=== PATIENT | female | born 2005 ===

== ENCOUNTER 2025-11-02 12:37 | Emergency (ER) | payer SELFPAY ==
[2025-11-02 13:22] VITALS: BP 137/77; PULSE 96; RESP 97; TEMP 36.3; O2SAT 99; BMI 30.1
--- NOTE | 2025-11-02 13:32 | ED_ITS ---
HPI - General Adult General Chief complaint: General Medical Stated complaint: General Medical Time Seen by Provider: 11/02/25 17:06 Source: patient Mode of arrival: ambulatory Limitations: no limitations History of Present Illness ED Provider: John Perez HPI narrative: 20 yold female who has 5 pregancy tests that were positive presents to the ED who wants to confirm . Patient is asymptomatic. patient states no abdominal pain, nausea, vomitting, or vaginal bleeding/discharge. Related Data Allergies Allergy/AdvReac Type Severity Reaction Status Date / Time Penicillins (PCN) Allergy Unknown UNK Verified 11/02/25 13:28 Review of Systems Review of Systems: wants to confirm Yes all other systems are reviewed and are negative PMFSH Social History Social History Advance Directives: No Advance Directives Information Provided: No Do you have a plan to hurt others: No Plan Physical Exam ED Vital Signs: Vital Signs - 24 hr 11/02/25 13:22 Temperature 97.4 F Pulse Rate 96 Respiratory Rate 97 H Blood Pressure 137/77 Pulse Oximetry 99 Oxygen Delivery Method Room Air BMI result Body Mass Index 30.1 Const General: cooperative, healthy appearing, comfortable, no acute distress, well developed, alert, awake and Physically active Orientation/consciousness: patient oriented x3 HENMT Head: Yes normal to inspection, Yes No palpable skull fracture present, Yes normocephalic and Yes atraumatic Eyes General: appearance normal, both eyes and all related structures Neck Neck: Yes normal visual inspection, Yes full ROM, Yes no lymphadenopathy, Yes no meningeal signs, Yes trachea midline, Yes supple, No anterior neck swelling and No tender Chest Chest palpation & inspection: normal inspection of the chest and normal palpation of entire chest wall Resp Effort & Inspection: normal respiratory effort and able to speak in complete sentences Auscultation: clear to auscultation bilaterally Cardio Jugular venous distension: no JVD Heart sounds: S1 normal heart sound present and S2 normal heart sound present GI Inspection: Yes normal to inspection Palpation (GI): Soft to palpation, not firm, nontender, no guarding and not rigid General: Yes no CVA tenderness Back/Spine/Pelvis Back: no CVA tenderness and No back tenderness Skin General skin exam: no rashes or lesions noted and elasticity normal Neuro General: patient oriented x3, gait normal, tone normal, moves all extremities, Normal light touch and pain sensation, no meningeal signs, no focal motor deficits and CN's II-XI intact bilaterally Extrem General: Yes normal to inspection, Yes full ROM and Yes capillary refill normal Psych Appearance: grossly normal, well kempt and not disheveled Course Course Course Narrative: RME: 20-year-old female presents to ED wanted to confirm . Patient took 5 tests at home and they were all positive. Patient denies any abdominal pain, nausea, vomiting, vaginal bleeding or vaginal discharge. Labs ordered Medical Decision Making Medical Decision Making MDM Narrative: 20-year-old female presents to ED for wanted to confirm . Patient is asymptomatic. HCG confirmed . Patient will follow up outpatient OBGYN. Patient states no complaint patient explained worrisome signs informed return to the ED immediately. Differential Diagnosis Differential Diagnoses: The differential diagnosis associated with the presentation includes ( ) Admission/Observation Consideration of admission/observation: Escalation of care including admission/observation considered Lab Data [facility] Lab Attestation statement: I reviewed the patient's lab results. Labs: Lab Results 11/02/25 Range/Units 14:45 Beta HCG, Quant [id number] mIU/mL Discharge Plan Discharge Clinical Impression: Patient Disposition: Home, Self-Care Instructions: (ED) Additional Instructions: recommend follow up with OBGYN. Return to the ED immediately for any abdominal pain, vaginal bleeding, vaginal discharge, flank pain, fever, chills, passing out, nausea, vomitting, or any other concerning symptoms. [facility] [address] [place] [phone] Personal Financial Advisor: Angelo Martin M.D. Specimen Inquiry Name: Eloise Patel Age/Sex: 20/F : 2005 Unit#: [id number] Attend Dr: Giancarlo Modi MD Re11/02/25 Status: PRE ER Location: .ED Disch: SPEC : [id number] ALY: 11/02/25 STATUS: COMP REQ : [id number] RECD: 11/02/[address]: John Perez COMP: 11/02/25 ENTERED: 11/02/25-1332 [facility] [address]: Physician,None ORDERED: HCG Quant Test Result Flag Reference HCG Quant [id number] mIU/mL Weeks post LMP Approximate hCG (Last Menstrual Period) Range (mIU/ml) 3 - 4 weeks 9 - 130 4 - 5 weeks 75 - 2,600 5 - 6 weeks 850 - 20,800 6 - 7 weeks 4000 - 100,200 7 - 12 weeks 11,500 - 289,000 12 - 16 weeks 18,300 - 137,000 16 - 29 weeks (2nd trimester) 1,400 - 53,000 29 - 41 weeks (3rd trimester) 940 - 60,000 The Jaramillo B-hCG assay is used for the early detection of ; it cannot be used to diagnose any condition unrelated to . If a B-hCG level is not supported by the clinical evidence, results should be confirmed by an alternative method (qualitative urine hCG, for example). Please see list of local OBGYN providers below: [facility] [address] [phone] [facility] [address] [place] [address] [phone] [facility] [place] [phone] [facility] [place] [phone] Stand Alone Forms: Work/School Release Interventions: ED Discharge Assessment Last Done: 11/02/25 17:21 Discharge Date/Time: 11/02/25 17:27 Print Language: Upper Sorbian
[2025-11-02 17:21] VITALS: BP 128/66; PULSE 92; RESP 18; TEMP 36.6; O2SAT 96
== END 2025-11-02 17:27 | disposition home or self-care (01) ==
LOC: HO.ED 17:22
PROVIDERS: Physician Assistant; Emergency Provider Emergency Medicine
DX: Z34.90 Encounter for supervision of normal pregnancy, unspecified, unspecified trimester (principal)
CPT/HCPCS: 36415; 84702; 99282; 99283